=== PATIENT | male | born 1955 | race Caucasian/White ===

== ENCOUNTER → 2017-05-23 | Outpatient (CLI) | payer BC ==
[~2017-05-23] MED LIST: ACET-1311; CLB200; PARO1TAB27; VERELAN
[2017-05-23 16:39] LABS: BASO % 0.5 %; BASO ABS # 0.04 K/uL (0-0.2); EOS % 1.8 %; EOS ABS # 0.16 K/uL (0-0.5); HEMATOCRIT 44.9 % (42-52); HEMOGLOBIN 15.5 g/dL (14.0-18.0); IG# 0.06 K/uL (0.00-0.02); LYMPH % 28.9 %; LYMPH ABS # 2.51 K/uL (1.2-3.4); MEAN CELL VOLUME 89.1 fL (80-100); MEAN CORPUSCULAR HEMOGLOBIN 30.8 pg (25-34); MEAN CORPUSCULAR HGB CONC 34.5 g/dl (32-36); MEAN PLATELET VOLUME 10.8 fL (7.4-10.4); MONO % 12.8 %; MONO ABS # 1.11 K/uL (0.11-0.59); NEUT % 55.3 %; PLATELET COUNT 261 K/uL (130-400); RED CELL DISTRIBUTION WIDTH CV 12.5 % (11.5-14.5); RED CELL DISTRIBUTION WIDTH SD 40.4 fL (36.4-46.3); WHITE BLOOD COUNT 8.68 K/uL (4.8-10.8)
[2017-05-23 17:08] LABS: BLOOD UREA NITROGEN 15 mg/dl (7-18); CALCIUM 9.4 mg/dl (8.5-10.1); CARBON DIOXIDE 28 mmol/L (21-32); CREATININE 1.42 mg/dl (0.60-1.40); GLUCOSE 89 mg/dl (70-99); POTASSIUM 3.9 mmol/L (3.5-5.1); SODIUM 138 mmol/L (136-145)
== END | disposition home or self-care (01) ==
LOC: C.CPL 14:49
PROVIDERS: ATTEND Orthopaedic Surgery
DX: Z01.812 Encounter for preprocedural laboratory examination (principal); M75.121 Complete rotator cuff tear or rupture of right shoulder, not specified as traumatic

== ENCOUNTER → 2017-05-23 | Outpatient (CLI) | payer BC ==
--- NOTE | 2017-05-23 12:45 | DIAGNOSTIC IMAGING REPORT ---
R UPPER EXT JOINT WITHOUT CLINICAL HISTORY: R SHOULDER PAIN pain TECHNIQUE: Multi axial MRI acquisition COMPARISON STUDY: None FINDINGS: Signal characteristics the osseous structures indicate considerable degenerative change of the articular services the glenohumeral joint. There is considerable narrowing of the acromiohumeral space. There are hypertrophic and osteophytic changes of the acromioclavicular joint. There is a full-thickness tear of the supraspinatus of the supraspinatus tendon with partial musculotendinous retraction is posterior and mid aspect. This is estimated 2 cm. There is a chronic full-thickness tear with musculotendinous retraction of the infraspinatus. This is estimated at 3 cm of musculotendinous retraction. The subscapularis tendon appears to be intact with: Minimal tendinopathy. Inferior osteophytic formation from the distal aspect of the clavicle and to a lesser extent inferior acromion creating impingement upon the residual supraspinatus musculotendinous complex at its anterior margin. There is linear split of the biceps tendon. There are considerable degenerative changes of the glenoid labrum as well as articular services of the glenohumeral joint. IMPRESSION: 1. Full-thickness tear of the mid to posterior aspect of the supraspinatus tendon with an additional full-thickness tear of the infraspinatus tendon. 2. Musculotendinous retraction is 2 and 3 cm respectively as discussed above. 3. Mild tendinopathy of the subscapularis tendon. 4. Considerable degenerative change glenohumeral as well as acromioclavicular joints with mild inferior osteophytic reaction at the acromioclavicular joint. This creates at least moderate impingement. 5. Linear split biceps tendon 6. Small joint effusion. The above report was generated using voice recognition software. It may contain grammatical, syntax or spelling errors. Electronically signed by: Lobito Piña M.D. 05/23/2017 12:44 PM Dictated Date/Time: 05/23/2017 12:36 PM
== END | disposition home or self-care (01) ==
LOC: C.MRIBC 11:35
PROVIDERS: ATTEND Orthopaedic Surgery
DX: S46.911A Strain of unspecified muscle, fascia and tendon at shoulder and upper arm level, right arm, initial encounter (principal); X58.XXXA Exposure to other specified factors, initial encounter

== ENCOUNTER → 2017-05-26 | Day surgery (SDC) | payer BC ==
[2017-05-25 08:03] VITALS: Ht 185.4 cm; Wt 100.0 kg
[~2017-05-26] VITALS: Ht 185.4 cm; Wt 100.0 kg
[~2017-05-26] MED LIST changes: -ACET-1311; +ATROPINE SULFATE 0.1 MG/ML 5ML SYR IV PRN; +BUPIVACAINE/EPINEPHRINE 0.25% 1:200,000 30 ML VIAL ONE; +CEFAZOLIN 2000MG IV PUSH 10 ML IV SCH; -CLB200; +DEXAMETHASONE SOD INJ 4 MG/ML VIAL ONE; +EpHEDrine SULFATE INJ 50 MG/ML AMP IV PRN; +EpHEDrine SULFATE INJ 50 MG/ML AMP ONE; +EpINEphrine INJ 1MG/ML AMP 1 MG/ML AMP ONE; +FENTANYL CITRATE INJ 50 MCG/1 ML 2 ML VIAL IV PRN; +FENTANYL CITRATE INJ 50 MCG/1 ML 2 ML VIAL ONE; +KETO10TA PO; +KETOROLAC TROMETHAMINE 30 MG/ML VIAL IV. PRN; +LACTATED RINGER'S 1000ML 1,000 ML IV SCH; +LIDOCAINE HCL 2% 2 ML VIAL (20MG/ML) ONE; +MIDAZOLAM HCL 1 MG/ML 2ML VIAL ONE; +ONDANSETRON INJ 2 MG/ML 2 ML VIAL IV PRN; +ONDANSETRON INJ 2 MG/ML 2 ML VIAL ONE; +OXYC-57 PO; +OXYCODONE/ACETAMINOPHEN 5-325 TAB PO PRN; -PARO1TAB27; +PARO1TAB27 PO; +PHENYLEPHRINE HCL INJ 10 MG/ML VIAL ONE; +PROPOFOL IV EMULSION 10 MG/ML 20 ML VIAL IV ONE; +ROPIVACAINE 0.5% 5 MG/ML 30 ML VIAL ONE; +SODIUM CHLORIDE 0.9% 1000ML 1,000 ML IV SCH; -VERELAN; +VERELAN PO
--- NOTE | 2017-05-26 08:13 | History & Physical Bridge - SC ---
H&P Re-Evaluation Bridge Note: I have examined the patient, reviewed the History & Physical and in the interval since the performance of the History & Physical I have noted the following changes of clinical significance: No changes noted
--- NOTE | 2017-05-26 11:37 | [facility] Post Operative Brief Note ---
Immediate Operative Summary Operative Date May 26, 2017. Pre-Operative Diagnosis Right Shoulder Large Rotator Cuff Tear Post-Operative Diagnosis Same Procedure(s) Performed Right Shoulder Arthroscopy, Large Rotator Cuff Repair, Biceps Tenodesis, Acromioplasty Surgeon Dr. Kat Geophysics Scientist Surgeon(s) Amado Peterson PA-C Estimated Blood Loss 5ml Findings as above Specimens None Complication(s) None Disposition Recovery Room / PACU
--- NOTE | 2017-05-26 11:52 | Discharge Instructions-SurgCtr ---
Discharge Instructions Date of Service May 26, 2017. Visit Reason for Visit: Right Shoulder Full Thickness Rotator Cuff Tear Discharge Discharge Diagnosis / Problem: SAME ABOVE Discharge Goals Goal(s): Decrease discomfort, Improve function Activity Recommendations Activity Limitations: as noted below Lifting Limitations: until after follow-up appointment Shower/Bathe: tomorrow Anesthesia . Post Anesthesia Instructions: If you have had General Anesthesia or IV Sedation: * Do not drive today. * Resume driving when surgeon permits. * Do not make important decisions or sign legal documents today. * Call surgeon for: 1. Temperature elevations greater than 101 degrees F. 2. Uncontrollable pain. 3. Excessive bleeding. 4. Persistent nausea and vomiting. 5. Medication intolerance (nausea, vomiting or rash). * For nausea and vomiting use only clear liquids such as: tea, soda, bouillon until nausea subsides, then gradually increase diet as tolerated. * If you have any concerns or questions, call your surgeon's office. If physician is unavailable and it is an emergency, call 911 or go to the nearest emergency room. . Instructions / Follow-Up Instructions / Follow-Up MEDICATIONS: * Resume previous medications unless instructed otherwise by your surgeon. * Always take pain medication on a full stomach or with food to avoid upset stomach. * Do not drink alcohol or drive while taking narcotics. * Ibuprofen or Tylenol may be taken if narcotic not needed. SPECIAL CARE INSTRUCTIONS: __ None _X_ Keep extremity elevated and iced x 48 hours; apply ice 20-30 minutes 8-10 times/day. May remove at night. __ Sling __24 hrs/day __ Remove at night _X_ Shoulder Immobilizer (MAY REMOVE AFTER 48 HOURS ONLY TO SHOWER) _X_ 24 hrs/day __ Remove at night _X_ Dressing __ Maintain until seen in office, may shower with plastic over site _X_ Remove dressings in 24-48 hours and then may shower _X_ Cover incisions with band-aids after showering __ Do not remove steri-strips Call physician if chills or temperature rises above 102 degrees or pain unrelieved by prescribed pain medications at . . Diet Recommendations Home Diet: no limitations Fluid Restriction: None Procedures Procedures Performed: Right Shoulder Arthroscopy, Large Rotator Cuff Repair, Biceps Tenodesis, Acromioplasty Pending Studies Studies pending at discharge: no Work Instructions Return To Work: after follow-up Lifting Limitations: NO LIFTING WITH RIGHT ARM Medical Emergencies . Who to Call and When: Medical Emergencies: If at any time you feel your situation is an emergency, please call 911 immediately. . Non-Emergent Contact Non-Emergency issues call your: Primary Care Provider Call Non-Emergent contact if: you have a fever, temperature is above 101.5 . . "Provider Documentation" section prepared by Forrest Peterson. .
--- NOTE | 2017-05-26 12:34 | OPERATIVE REPORT ---
DATE OF OPERATION: 05/26/2017 PREOPERATIVE DIAGNOSIS: Large right rotator cuff tear. POSTOPERATIVE DIAGNOSIS: Same. PROCEDURE: Right shoulder diagnostic arthroscopy with extensive debridement, acromioplasty, large rotator cuff repair and arthroscopic biceps tenodesis. SURGEON: Dr. Thom Kat. WIRE FENCE ERECTOR: Forrest Peterson PA-C, whose assistance was necessary for positioning the arm and helping with instrumentation. ANESTHESIA: General with a right interscalene nerve block. COMPLICATIONS: None. CONDITION: Stable to PACU. INDICATIONS: Ronnie is a pleasant 62-year-old male who has had a several-year history of right shoulder pain. His symptoms have been getting worse and he has been having trouble sleeping at night and noticed some weakness in his shoulder. I have send him for an MRI of his shoulder. MRI showed a large rotator cuff tear. After failing conservative treatment, he elected to undergo rotator cuff repair. On 05/26/2017, he arrived at [facility] for the above procedure. He was seen in the preoperative holding area and the operative extremity was identified and signed. He was given a preoperative antibiotic and a right interscalene nerve block. He was taken back to the operating room, laid on the table in supine position and put under general anesthesia. He was put into the beachchair position. The right shoulder was prepped and draped in sterile fashion. Time-out was done and the patient and operative extremity was properly identified. A scope was introduced in the posterior portal. Diagnostic arthroscopy showed one area of grade 3 and 4 chondral changes on the center of the humeral head. There were a little grade 4 chondral changes on the bottom aspect of the glenoid. The rest of the cartilage looked fine. There was some fraying of the labrum. The biceps tendon was significantly frayed, but not subluxated. The subscapularis was intact. There was a tear of the entire supraspinatus and infraspinatus. The teres minor was intact. An anterior portal was made. A shaver was used to start an extensive debridement of some of the intra-articular structures. A chondroplasty was done and the labrum was debrided. The biceps tendon was tagged with an Arthrex FiberLink and tenotomized for later tenodesis. The scope was then put into the subacromial space. A lateral portal was made. A shaver was used to do a complete subacromial and subdeltoid bursectomy. An ablator was used to tease the coracoacromial ligament off the undersurface of the acromion and a 5-0 loc was used to complete the acromioplasty of a Bigliani type 2 acromion. A shaver was used to remove any excess debris and attention was turned to the rotator cuff. It was a large chronic crescent-shaped tear retracted back to the mid humeral head. An additional anterolateral portal was made, 2 Linda cannulas were placed in each of the lateral portals. A cuff grasper was used and I could easily pull the tendon down to cover a little over half the footprint. It seemed to be an older tear, but was easily repairable. The greater tuberosity was prepared with a ring curette and a microfracture. The rotator cuff was then fixed with an Arthrex suspension bridge configuration using BioComposite SwiveLock suture anchors and FiberTapes. This gave a nice knotless repair. Multiple pictures were taken. The long head of the biceps tendon was tenodesed into the anterior medial anchor to complete an arthroscopic biceps tenodesis. The scope was then placed back into the glenohumeral joint and the articular margin of the rotator cuff had been restored. Pictures were taken. Arthroscopic instruments were removed from the shoulder. Portal sites were closed with 3-0 nylon. He was then placed in a soft dressing and an abduction arm sling. He was then extubated, transferred to a [facility] and taken to the postanesthesia care unit in stable condition. He tolerated the procedure well. I attest to the content of the Intraoperative Record and any orders documented therein. Any exception s are noted below.
[2017-05-26 12:38] VITALS: TEMP 36.3
[2017-05-26 13:04] VITALS: BP 129/76; PULSE 80; O2SAT 97
--- NOTE | 2017-05-26 13:16 | Anesthesia Progress Nt - [facility] ---
Anesthesia Post Op Note Date & Time May 26, 2017 at 13:16 Vital Signs Pain Intensity: 2 Vital Signs Past 12 Hours Date Time Temp Pulse Resp B/P (MAP) Pulse Ox O2 Delivery O2 Flow Rate FiO2 05/26/17 13:04 80 16 129/76 (93) 97 Room Air 05/26/17 12:38 36.3 87 16 133/78 (96) 97 Room Air 05/26/17 12:30 144/76 05/26/17 12:28 85 32 92 05/26/17 12:28 84 32 05/26/17 12:27 36.5 82 20 144/76 96 Room Air 05/26/17 12:25 138/78 05/26/17 12:25 138/78 05/26/17 12:23 84 18 97 05/26/17 12:23 84 18 05/26/17 12:20 142/85 05/26/17 12:18 84 14 05/26/17 12:18 84 14 97 05/26/17 12:15 147/79 05/26/17 12:13 87 16 05/26/17 12:13 87 16 100 05/26/17 12:10 133/69 05/26/17 12:08 89 100 05/26/17 12:08 89 05/26/17 12:05 134/81 05/26/17 12:03 84 16 05/26/17 12:03 84 16 100 05/26/17 12:00 135/82 05/26/17 11:58 80 14 100 05/26/17 11:58 80 14 05/26/17 11:55 137/75 05/26/17 11:53 86 15 05/26/17 11:53 86 15 100 05/26/17 11:51 133/80 05/26/17 11:51 36.5 78 20 133/80 100 Mask 6 05/26/17 09:58 74 17 98 05/26/17 09:58 74 05/26/17 09:57 68 05/26/17 09:57 68 19 98 05/26/17 09:56 70 19 98 05/26/17 09:56 70 05/26/17 09:55 131/83 05/26/17 09:51 71 05/26/17 09:51 71 19 98 05/26/17 09:50 135/82 05/26/17 09:47 70 18 98 05/26/17 09:47 70 05/26/17 09:46 69 05/26/17 09:46 69 18 98 05/26/17 09:45 137/84 05/26/17 09:41 70 05/26/17 09:41 69 19 99 05/26/17 09:40 129/83 05/26/17 09:36 69 20 98 05/26/17 09:36 69 05/26/17 09:35 137/84 05/26/17 09:31 72 05/26/17 09:31 73 20 98 05/26/17 09:30 123/82 05/26/17 09:26 69 20 98 05/26/17 09:26 70 05/26/17 09:25 136/87 05/26/17 09:21 69 19 99 05/26/17 09:21 70 05/26/17 09:20 69 19 130/82 98 05/26/17 09:20 70 05/26/17 09:15 69 05/26/17 09:15 69 18 135/83 99 05/26/17 09:10 70 05/26/17 09:10 69 18 135/85 99 05/26/17 09:05 71 19 126/79 98 05/26/17 09:05 72 05/26/17 09:00 72 05/26/17 09:00 71 19 132/85 99 05/26/17 08:55 70 22 129/84 99 05/26/17 08:55 70 05/26/17 08:50 71 141/91 95 05/26/17 08:50 71 05/26/17 08:45 Diffusion Mask 4 05/26/17 08:45 76 05/26/17 08:45 71 134/93 94 05/26/17 08:05 36.5 72 16 148/96 (113) 96 Room Air Notes Mental Status: alert / awake / arousable, participated in evaluation Pt Amnestic to Procedure: Yes Nausea / Vomiting: adequately controlled Pain: adequately controlled Airway Patency, RR, SpO2: stable & adequate BP & HR: stable & adequate Hydration State: stable & adequate Anesthetic Complications: no major complications apparent
== END | disposition home or self-care (01) ==
LOC: X.SURG 07:07
PROVIDERS: ATTEND Orthopaedic Surgery
DX: M75.101 Unspecified rotator cuff tear or rupture of right shoulder, not specified as traumatic (principal); I10 Essential (primary) hypertension; E78.00 Pure hypercholesterolemia, unspecified; Z82.49 Family history of ischemic heart disease and other diseases of the circulatory system; Z83.3 Family history of diabetes mellitus